=== PATIENT | female | born 1980 | race Caucasian/White ===

== ENCOUNTER 2020-12-29 06:33 | Inpatient (IN) | payer OTHER ==
[2020-12-29] MEDS ORDERED: LIDOCAINE 0.5% (PF) 5 MG/ML (50 ML SDV) SQ PRN (06:47)
[2020-12-29] MEDS ORDERED: TERBUTALINE 1 MG/ML VIAL SQ PRN (06:47)
[2020-12-29] MEDS ORDERED: CARBOPROST TROMETHAMINE 250 MCG/ML 1 ML AMP IM PRN (06:47)
[2020-12-29] MEDS ORDERED: OXYTOCIN 10 UNIT/ML 1 ML VIAL IM PRN (06:47)
[2020-12-29] MEDS ORDERED: METHYLERGONOVINE 0.2 MG/ML 1 ML AMP IM PRN (06:47)
[2020-12-29 06:58] LABS: Glucose,Whole Blood 94 mg/dL (75-99)
[2020-12-29] MEDS: LACTATED RINGERS 1,000 ML IV SCH ×2 (06:58→10:12)
[2020-12-29] MEDS ORDERED: OXYTOCIN 30 UNITS/500 ML NS 30 UNIT in SALINE 1 500ML.BAG IV SCH ×2 (07:00→15:00)
[2020-12-29 07:07] LABS: Basophils % (A) 0 %; Eosinophils % (A) 2 %; HCT 39.4 % (34.0-46.0); Lymphocytes # (A) 1.6 k/uL (1.0-4.8); Lymphocytes % (A) 26 %; MCH 29.6 pg (25.0-35.0); MCV 89.8 fL (80.0-100.0); Mean Platelet Volume 9.2; Monocytes # (A) 0.2 k/uL (0-1.0); Monocytes % (A) 4 %; Neutrophils # (A) 4.2 k/uL (1.3-7.7); Neutrophils % (A) 67 %; Platelet Count 133 k/uL (150-450); RBC 4.39 m/uL (3.80-5.40); RDW 13.7 % (11.5-15.5); WBC 6.3 k/uL (3.8-10.6)
[2020-12-29 07:08] LABS: Eosinophils # (A) 0.1 k/uL (0-0.7)
[2020-12-29] MEDS ORDERED: BUTORPHANOL 1 MG/ML 1 ML VIAL IV PRN (08:47)
--- NOTE | 2020-12-29 08:51 | P.HPOB ---
History of Present Illness H&P Date: 12/29/20 Chief Complaint: 40-0/7 weeks, induction of labor The patient is a 40-year-old 3 para 1011 admitted at 40-0/7 weeks as established by last menstrual period and confirmed by 17 week ultrasound. She is admitted for essentially elective induction of labor with all signs reassuring. Her has been uncomplicated. She does fall into the category of advanced maternal age and declined trisomy screening. She additionally is Rh- and started [place] refuses RhoGAM or any other injections during . On labor and delivery, all signs are reassuring with a category 1 heart rate tracing. Group B strep status is negative. Obstetrical history: 3 para 1011 with 1 term vaginal delivery pregnancies hypertension for which there been no signs during this . Current statistics are listed in history of present illness. EDC of 12/29/2020 was established by last menstrual period and confirmed by 17 week ultrasound. Laboratory workup demonstrates a blood type of O- with a negative antibody screen. Rubella status is immune. The remainder of the laboratory workup was within normal limits. One hour Glucola was normal and group B strep status is negative. Gynecologic history: Unremarkable with no history of any infections to include STDs. Review of Systems Review of systems is confined to history of present illness. Past Medical History Past Medical History: No Reported History History of Any Multi-Drug Resistant Organisms: None Reported Additional Past Surgical History / Comment(s): lasix both eyes Past Anesthesia/Blood Transfusion Reactions: No Reported Reaction Past Psychological History: No Psychological Hx Reported Smoking Status: Never smoker Past Drug Use History: None Reported Medications and Allergies Home Medications Medication Instructions Recorded Confirmed Type Pnv No.95/Ferrous Fum/Folic AC 1 tab PO DAILY 12/29/20 12/29/20 History [ Multivitamin Tablet] Allergies Allergy/AdvReac Type Severity Reaction Status Date / Time No Known Allergies Allergy Verified 12/29/20 06:46 Exam Vital Signs Temp Pulse Resp BP Pulse Ox 12/29/20 07:16 98.7 F 103 H 16 142/72 98 Intake and Output 12/28/20 12/29/20 12/29/20 22:59 06:59 14:59 Other: Weight 78.471 kg 78.471 kg In general, this is a well-developed, well-nourished white female in no acute distress. Her heart has a regular rhythm and rate without murmur. Her lungs clear to auscultation bilaterally in all amaya. Her abdomen is gravid, nondistended, has normal active bowel sounds, soft, nontender, and without any palpable masses aside from uterine fundus. Her extremities are without any cyanosis, clubbing, or significant edema and are nontender to palpation bilaterally. Digital cervical examination on [facility] approximate 27 m dilated, 50% effaced, the vertex in presentation at -2 station. Artificial ru pture of membranes is carried out demonstrating clear fluid. Results Result Diagrams: 12/29/20 06:57 Abnormal Lab Results - Last 24 Hours (Table) 12/29/20 Range/Units 06:57 Plt Count 133 L (150-450) k/uL Assessment and Plan (1) Term Current Visit: Yes Status: Acute Code(s): Z34.90 - ENCNTR FOR SUPRVSN OF NORMAL , UNSP, UNSP TRIMESTER SNOMED Code(s): 03133825 Plan: The patient is admitted for elective induction of labor with all signs reassuring. She will have close maternal and surveillance and expectant management will be practiced. She is a good candidate for either IV or epidural analgesia, whichever she may choose.
[2020-12-29] MEDS ORDERED: ROPIVACAINE 100 MG, fentaNYL (PF). 200 MCG in SODIUM CHLORIDE 0.9% 76 ML EPIDURAL ONE (12:04)
[2020-12-29] MEDS ORDERED: diphenhydrAMINE 25 MG CAP PO PRN (14:53)
[2020-12-29] MEDS ORDERED: SIMETHICONE 80 MG CHEWABLE PO PRN (14:53)
[2020-12-29] MEDS ORDERED: LANOLIN CREAM 5 GM TUBE TOPICAL PRN (14:53)
[2020-12-29] MEDS ORDERED: ACETAMINOPHEN TAB 325 MG TAB PO PRN (14:53)
[2020-12-29] MEDS ORDERED: diphenhydrAMINE 50 MG/ML 1 ML VIAL IVP PRN ×2 (14:53)
[2020-12-29] MEDS ORDERED: BENZOCAINE/MENTHOL SPRAY 1 GM/SPRAY AEROSOL TOPICAL PRN (14:53)
[2020-12-29] MEDS ORDERED: ZOLPIDEM 5 MG TAB PO PRN (14:53)
[2020-12-29] MEDS ORDERED: HYDROcodone/APAP 7.5-325MG 1 EACH TAB PO PRN (14:53)
[2020-12-29] MEDS ORDERED: HYDROcodone/APAP 5-325MG 1 EACH TAB PO PRN (14:53)
[2020-12-29] MEDS ORDERED: HYDROCORTISONE 2.5% RECTAL CREAM 30 GM TUBE RECTAL PRN (14:53)
[2020-12-29] MEDS ORDERED: diphenhydrAMINE 50 MG CAP PO PRN (14:53)
--- NOTE | 2020-12-29 14:57 | P.PROBDLV ---
Vaginal Delivery Note - . Vaginal Delivery Note: The patient is a 40-year-old 3 para 1011 admitted at 40-0/7 weeks by good dating parameters perches admitted for elective induction with all signs reassuring. Her has been uncomplicated though she is Rh- and refused RhoGAM during the . She also [place] the category of advanced maternal age and declined trisomy testing. Group B strep status was negative. On labor and delivery, Pitocin augmentation was started followed by artificial rupture of membranes for clear fluid. She shortly thereafter had an epidural catheter placed for analgesia and made fairly quick progress through the active phase of labor to complete. She pushed for approximately 20 minutes to a normal spontaneous vaginal delivery of a viable 7 lbs. 8 oz. baby boy with Apgars of 9 at 1 minute and 9 at 5 minutes delivered in the right occiput anterior position. There was a nuchal cord 1 which was reduced following delivery of the . cord blood was collected and sent for evaluation for the necessity of RhoGAM. The placenta was delivered spontaneously, intact, and grossly normal though there was evidence of the circumvallate findings. There was additionally a grossly normal, marginally inserted three-vessel cord. There was a second-de gree midline perineal laceration over the site of a previous episiotomy which was repaired in standard fashion using 3-0 chromic catgut without difficulty. Estimated blood loss for the entire case is approximately 100 mL. There were no complications. All sponge, instrument, and needle counts were correct. Both mother and are resting comfortably in recovery.
[2020-12-29] MEDS: IBUPROFEN 600 MG TAB PO PRN (18:54)
[2020-12-29] MEDS: SENNOSIDES-DOCUSATE SODIUM 1 EACH TAB PO SCH (21:51)
[2020-12-30] MEDS: LACTATED RINGERS 1,000 ML IV SCH (00:39)
[2020-12-30 04:15] VITALS: RESP 16
[2020-12-30] MEDS: IBUPROFEN 600 MG TAB PO PRN (06:03)
[2020-12-30 07:29] LABS: Basophils % (A) 0 %; Eosinophils # (A) 0.1 k/uL (0-0.7); Eosinophils % (A) 1 %; HCT 35.3 % (34.0-46.0); HGB 12.1 gm/dL (11.4-16.0); Lymphocytes # (A) 1.5 k/uL (1.0-4.8); Lymphocytes % (A) 18 %; MCH 30.9 pg (25.0-35.0); MCHC 34.2 g/dL (31.0-37.0); MCV 90.4 fL (80.0-100.0); Mean Platelet Volume 9.8; Monocytes # (A) 0.3 k/uL (0-1.0); Monocytes % (A) 3 %; Neutrophils # (A) 6.3 k/uL (1.3-7.7); Neutrophils % (A) 76 %; Platelet Count 137 k/uL (150-450); RBC 3.91 m/uL (3.80-5.40); RDW 14.2 % (11.5-15.5); WBC 8.2 k/uL (3.8-10.6)
[2020-12-30] MEDS: SENNOSIDES-DOCUSATE SODIUM 1 EACH TAB PO SCH (08:30)
[2020-12-30 09:06] VITALS: BP 120/77; PULSE 97; TEMP 98.7
--- NOTE | 2020-12-30 10:29 | P.DS ---
Providers Date of admission: 12/29/20 06:33 Expected date of discharge: 12/30/20 Attending physician: Mamadou Dawson Primary care physician: Mamadou Dawson - Discharge Diagnosis(es) (1) Term Current Visit: Yes Status: Acute (2) Normal spontaneous vaginal delivery Current Visit: Yes Status: Acute Hospital Course: The patient is a 40-year-old 3 para 1011 admitted at 40-0/7 weeks by good dating parameters perches admitted for an induction of labor with all signs reassuring. Her was uncomplicated though she fell into the category of advanced maternal age and declined trisomy testing. She additionally was Rh- and refused RhoGAM for personal reasons. Group B strep status was negative. On labor and delivery, she had Pitocin started followed by artificial rupture members for clear fluid. She had an epidural catheter placed for analgesia and then progressed fairly quickly to complete. She pushed to a normal spontaneous vaginal delivery of a viable 7 lbs. 8 oz. baby boy with Apgars of 9 at 1 minute and 9 at 5 minutes. Her course was unremarkable with vital signs remaining stable and her temperature was afebrile throughout. She was deemed stable for discharge on day #1 was discharged home to follow-up in the office in 6 weeks' time routinely. Discharge instructions included calling for any significantly increased bleeding or foul-smelling lochia, significantly increased fever abdominal pain, perineal complaints, breast complaints, or anything else that concerned her. She additionally was instructed to have nothing in the vagina for at least 6 weeks time to include intercourse. She understood her instructions and agrees to follow up as noted above. Discharge medications included only [id number] analgesic pain medications as needed as well as continued vitamins as she has opted to breast-feed. Maternal blood type is O- and cord blood was sent for evaluation for the necessity of RhoGAM prior to discharge. Rubella status is immune. Procedures: #1. Pitocin induction #2. Artificial rupture of membranes #3. Epidural analgesia #4. Normal spontaneous vaginal delivery #5. Repair of perineal laceration Patient Condition at Discharge: Stable Plan - Discharge Summary New Discharge Prescriptions: No Action Pnv No.95/Ferrous Fum/Folic AC [ Multivitamin Tablet] 1 tab PO DAILY Discharge Medication List Pnv No.95/Ferrous Fum/Folic AC [ Multivitamin Tablet] 1 tab PO DAILY 12/29/20 [History] Follow up Appointment(s)/Referral(s): Mamadou Dawson MD [Primary Care Provider] - 6 Weeks Discharge Disposition: HOME SELF-CARE
== END 2020-12-30 15:25 | disposition home or self-care (01) | DRG 807 ==
LOC: 4FBP 06:33
PROVIDERS: ADMIT Obstetrics & Gynecology; ATTEND Obstetrics & Gynecology
PROC: 10E0XZZ Delivery of Products of Conception, External Approach (ICD-10-PCS; principal; 2020-12-29)
PROC: 0KQM0ZZ Repair Perineum Muscle, Open Approach (ICD-10-PCS; 2020-12-29)
PROC: 3E033VJ Introduction of Other Hormone into Peripheral Vein, Percutaneous Approach (ICD-10-PCS; 2020-12-29)
PROC: 10907ZC Drainage of Amniotic Fluid, Therapeutic from Products of Conception, Via Natural or Artificial Opening (ICD-10-PCS; 2020-12-29)
DX: O69.81X0 Labor and delivery complicated by cord around neck, without compression, not applicable or unspecified (principal); Z37.0 Single live birth; O70.1 Second degree perineal laceration during delivery; Z3A.40 40 weeks gestation of pregnancy; O26.893 Other specified pregnancy related conditions, third trimester; Z67.41 Type O blood, Rh negative
CPT/HCPCS: 85025; 86850; 86900; 86901